=== PATIENT | male | born 1955 | race Caucasian/White ===

== ENCOUNTER 2018-08-14 21:42 | Emergency (ER) | payer MEDICAID ==
[~2018-08-14] VITALS: Ht 188 cm; Wt 83.0 kg
[2018-08-14] MEDS ORDERED: LORazepam 2 MG/ML, 1ML IVPush ONE (22:00)
[2018-08-14] MEDS ORDERED: LORazepam 2 MG/ML, 1ML ONE (22:05)
[2018-08-14 22:14] LABS: PH, VENOUS 7.327 pH (7.320-7.420)
[2018-08-14] MEDS: PLEASE ENTER HEIGHT AND WEIGHT MC SCH ×2 (22:16→23:08)
[2018-08-14 22:18] LABS: MICROSCOPIC NOT IND
[2018-08-14 22:19] LABS: BASOPHILS # (AUTO) 0.02 x10^3/uL (0-0.1); BASOPHILS % (AUTO) 0 % (0-1); EOSINOPHILS # (AUTO) 0.08 x10^3/uL (0-0.4); EOSINOPHILS % (AUTO) 1 % (1-7); LYMPHOCYTES # (AUTO) 2.55 x10^3/uL (1-3.4); LYMPHOCYTES % (AUTO) 39 % (22-44); MD NO; MEAN CORPUSCULAR HEMOGLOBIN 31.9 pg (27.5-34.5); MEAN CORPUSCULAR HGB CONC 34.4 g/dL (33.2-36.2); MEAN PLATELET VOLUME 9.3 fL (7.4-10.4); MONOCYTES # (AUTO) 0.44 x10^3/uL (0.2-0.8); MONOCYTES % (AUTO) 7 % (2-9); NEUTROPHILS % (AUTO) 52 % (42-75); PLATELET COUNT 136 x10^3/uL (130-400); RED CELL DISTRIBUTION WIDTH 13.9 % (9.4-14.8)
--- NOTE | 2018-08-14 22:19 | NUR ---
BIB [facility] WITH C/O HIGH BLOOD SUGAR, STATED PT CHECKED FSBS AT HOME X2 THAT READ HIGH, PT TOOK HOME SLIDING SCALE INSULIN 14 UNITS, PT A&OX4, DENIES NAUSEA. FSBS PER [facility] READ HIGH. MONITORS APPLIED, IV SITE STARTED, PT MEDICATED PER MAR, CALL LIGHT WITHIN REACH.
[2018-08-14] MEDS ORDERED: INSULIN (22:22)
[2018-08-14 22:28] LABS: ALANINE AMINOTRANSFERASE 58 U/L (12-78); ALBUMIN 3.5 g/dL (3.4-5.0); ANION GAP 18 mmol/L (5-15); CALCIUM 8.7 mg/dL (8.5-10.1); CHLORIDE 85 mmol/L (98-107); CREATININE 1.14 mg/dL (0.7-1.3)
[2018-08-14 22:29] LABS: CULTURE INDICATED? NO
[2018-08-14 22:30] LABS: ALKALINE PHOSPHATASE 84 U/L (45-117); BILIRUBIN,TOTAL 0.9 mg/dL (0.2-1.0); TROPONIN I < 0.015 ng/mL (0.000-0.045)
[2018-08-14] MEDS ORDERED: PLEASE ENTER ALLERGIES MC SCH (22:30)
[2018-08-14 22:49] LABS: ACETONE, SERUM Large (80mg/dL) mg/dL (Negative)
[2018-08-14] MEDS ORDERED: INSULIN REGULAR 100 UNITS/ML, 3ML VIAL IVPush ONE (23:00)
[2018-08-14] MEDS ORDERED: SODIUM CHLORIDE 0.9% 1,000ML IVBOLUS ONE ×2 (23:00)
[2018-08-14] MEDS ORDERED: INSULIN LISPRO 100 UNITS/ML, PEN ONE (23:01)
--- NOTE | 2018-08-14 23:10 | NUR ---
TASK RN: PT. RESTING ON GURNEY IN SUPINE POSITION WITH EYES CLOSED. SONOROUS, NON-LABORED RESPIRATIONS NOTED. EVEN, CHEST RISE/FALL. VS UPDATED. CALL LIGHT IN REACH. ALL SAFETY MEASUERS OBSERVED. PT. MEDICATED PER SEP.
[2018-08-14] MEDS ORDERED: INSULIN REGULAR 100 UNITS/ML, 3ML VIAL ONE (23:15)
--- NOTE | 2018-08-15 00:36 | NUR ---
PT RESTING WITH EYES CLOSED, NAD, EQUAL CHEST RISE/FALL OBSERVED, CALL LIGHT WITHIN REACH.
[2018-08-15] MEDS ORDERED: INSULIN REGULAR 100 UNITS/ML, 3ML VIAL ONE (00:45)
[2018-08-15] MEDS ORDERED: INSULIN REGULAR 100 UNITS/ML, 3ML VIAL IVPush ONE (01:00)
[2018-08-15 03:06] VITALS: BP 96/50
--- NOTE | 2018-08-15 03:17 | NUR ---
PEÑA RN: PT REFUSED TO LET THIS RN CHECK HIS BLOOD SUGAR. PT STATES, "I AM GETTING MY BOOTS ON AND LEAVING." PT DISCHRAGED. DR CARTER AWARE OF VS AT TIME OF DISCHARGE.
== END 2018-08-15 03:23 | disposition home or self-care (01) ==
LOC: ED 08-15 03:17
DX: E11.65 Type 2 diabetes mellitus with hyperglycemia (principal); R07.89 Other chest pain; Z72.9 Problem related to lifestyle, unspecified
CPT/HCPCS: 36415; 71045; 80053; 81003; 82010; 82803; 82962; 84484; 85025; 93005; 96361; 96374; 96375; 96376; 99284; J2060; J7030

== ENCOUNTER 2020-09-14 15:42 | Inpatient (IN) | payer MEDICAID ==
[~2020-09-14] VITALS: Ht 177.8 cm; Wt 60.1 kg
[~2020-09-14 15:42] MED LIST: INSULIN
--- NOTE | 2020-09-14 15:55 | NUR ---
ASSUMED CARE OF PATIENT. PATIENT CECIL SANTANA. EMS WAS CALLED, PT WAS PICKED UP DOWNTOWN. PT SMELLS OF ETOH. PT IS A&O X1. PT MOVING AROUND BED. PT WILL NOT ANSWER TRIAGE QUESTIONS. FSBS FOR EMS 493. PT HAS NOT BEEN TAKING HIS MEDS VS STABLE. NOT ABLE TO GET A TEMP AT THIS TIME. PARTS SALESMAN ON. WILL CONTINUE TO MONITOR.
--- NOTE | 2020-09-14 16:19 | NUR ---
pt seen by Dr Ennis. Pt resting with eyes closed. blanket given. sitter at bedside. call light in place. will continue to monitor.
[2020-09-14] MEDS ORDERED: SODIUM CHLORIDE 0.9% 1,000ML IVBOLUS ONE ×2 (16:30→18:00)
[2020-09-14] MEDS ORDERED: SODIUM CHLORIDE FLUSH 10ML SYR IVF ONE (16:30)
[2020-09-14] MEDS ORDERED: HALOPERIDOL 5 MG/ML IM ONE (16:45)
[2020-09-14] MEDS ORDERED: MIDAZOLAM 1 MG/ML, 2ML IVPush ONE (16:45)
[2020-09-14] MEDS ORDERED: MIDAZOLAM 1 MG/ML, 2ML ONE (16:46)
--- NOTE | 2020-09-14 16:52 | NUR ---
PT COMBATIVE. 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 PT YELLING AT STAFF. PT IS A&O1. PER DR BROWN, PROVIDER WANTS PT IN TWO POINT RESTRAINTS. DR BROWN WANTS VERSED GIVEN BUT HALDOL HELD AT THIS TIME. WILL CONTINUE TO MONITOR.
[2020-09-14 16:56] LABS: ALANINE AMINOTRANSFERASE 59 U/L (12-78); ALBUMIN 3.7 g/dL (3.4-5.0); ANION GAP 27 mmol/L (5-15); CALCIUM 9.7 mg/dL (8.5-10.1); CHLORIDE 101 mmol/L (98-107); CREATININE 1.78 mg/dL (0.7-1.3); MEAN CORPUSCULAR HEMOGLOBIN 29.9 pg (27.5-34.5); MEAN PLATELET VOLUME 9.8 fL (7.4-10.4); PLATELET COUNT 306 x10^3/uL (130-400); RED BLOOD COUNT 3.79 x10^6/uL (4.38-5.82); RED CELL DISTRIBUTION WIDTH 16.7 % (9.4-14.8); SALICYLATE LEVEL 2.6 mg/dL (2.8-20.0)
[2020-09-14 16:58] LABS: ALKALINE PHOSPHATASE 175 U/L (45-117); BILIRUBIN,TOTAL 0.6 mg/dL (0.2-1.0); TOTAL PROTEIN 8.2 g/dL (6.4-8.2)
[2020-09-14 17:06] LABS: MICROSCOPIC NOT IND
[2020-09-14 17:10] LABS: AMPHETAMINE SCREEN, URINE Positive (Negative); BARBITURATE SCREEN, URINE Negative (Negative); BENZODIAZEPINE SCREEN, URINE Negative (Negative); CANNABINOID SCREEN, URINE Negative (Negative); COCAINE SCREEN, URINE Negative (Negative); METHADONE SCREEN, URINE Negative (Negative); OPIATE SCREEN, URINE Negative (Negative)
--- NOTE | 2020-09-14 17:11 | NUR ---
PT RESTING IN GURNEY AFTER MEDICATION. SECURITY AT BEDSIDE TAKING RESTRAINTS OFF. DR BROWN AWARE. PT READY FOR CT. CT CALLED. VS STABLE. WILL CONTINUE TO MONITOR.
[2020-09-14 17:15] LABS: MD YES
[2020-09-14 17:17] LABS: BAND#(MANUAL) 1.17 x10^3/uL; BANDS%(MANUAL) 9 % (0-7); LYMPH#(MANUAL) 2.34 x10^3/uL (1-3.4); LYMPHS% (MANUAL) 18 % (22-44); METAMYELOCYTES# (MANUAL) 0.39 x10^3/uL (0-0); METAMYELOCYTES% (MANUAL) 3 % (0-1); MONOS#(MANUAL) 0.91 x10^3/uL (0.3-2.7); MONOS% (MANUAL) 7 % (2-9); SEG#(MANUAL) 8.19 x10^3/uL (1.8-6.8); SEGS% (MANUAL) 63 % (42-75)
[2020-09-14 17:18] LABS: <PLATELET ESTIMATE> ADEQUATE; <PLT MORPHOLOGY> NORMAL PLT MORPH; ANISOCYTOSIS 1+; POLYCHROMASIA 1+
--- NOTE | 2020-09-14 17:29 | NUR ---
pt back from CT
--- NOTE | 2020-09-14 17:34 | NUR ---
PT CALM AND RESTING IN ROOM WITH EYES CLOSED. REGULAR RESP. VS STABLE. CABLE SPOOLER ON. SINUS TACH NOTED. SITTER AT DOOR. CALL LIGHT IN PLACE. WILL CONTINUE TO MONITOR.
[2020-09-14] MEDS ORDERED: REGULAR INSULIN IV PRN (18:00)
[2020-09-14] MEDS ORDERED: SODIUM CHLORIDE 0.9% IV PRN (18:00)
[2020-09-14 18:15] LABS: ACETONE, SERUM Large (80mg/dL) (Negative)
[2020-09-14] MEDS ORDERED: LORazepam 2 MG/ML, 1ML ONE (18:21)
[2020-09-14] MEDS: LORazepam 2 MG/ML, 1ML IVPush PRN ×2 (18:25→18:47)
--- NOTE | 2020-09-14 18:27 | NUR ---
UNABLE TO GET A TEMP ON PATIENT. DR BROWN AWARE. PT MOVES AROUND BED. PT REFUSES TEMP. PT PULLED IV OUT. CATHETER INTACT. PT MOVED TO T3 PER PRECISION MACHINIST.
[2020-09-14] MEDS ORDERED: SODIUM CHLORIDE FLUSH 10ML SYR IVF PRN (18:30)
[2020-09-14] MEDS ORDERED: SODIUM CHLORIDE 0.9% 1,000 ML IV ONE (18:30)
--- NOTE | 2020-09-14 18:31 | NUR ---
PT AGGIATED, REDIRECTABLE TO STAY IN BED WITH ASSISTANCE FROM MORTGAGE LOAN CLOSER. PT MEDICATED PER ERP DR. BROWN WITH ATIVAN. PT LIFTED HIS PENIS AND STARTED PEEING ALL OVER BED WITHOUT WARNING TO STAFF. PT PROVIDED URINAL.
--- NOTE | 2020-09-14 18:41 | NUR ---
REPORT GIVEN TO CHRISTO MUSE. 93.[address] BROWN AWARE. YELLOW SLIP SENT FOR INSULIN.
--- NOTE | 2020-09-14 18:48 | NUR ---
DR BROWN AWARE OF VS. PT ON FARRAH ALBA PER PROVIDER.
--- NOTE | 2020-09-14 18:54 | NUR ---
SPOKE WITH DR BROWN. PROVIDER AWARE OF VS. SEPSIS PROTOCAL DISCUSSED WITH DR BROWN. NO NEW ORDERS AT THIS TIME. PROVIDER DOES NOT WANT ANY ABX AT THIS TIME.
--- NOTE | 2020-09-14 18:55 | NUR ---
BEDSIDE REPORT GIVEN TO CHRISTO PITTMAN
--- NOTE | 2020-09-14 19:14 | NUR ---
DR MATTHEWS IN ROOM. PROVIDER AWARE OF VS.
[2020-09-14] MEDS ORDERED: ONDANSETRON 2MG/ML, 2ML IV PRN (19:30)
[2020-09-14] MEDS ORDERED: LORazepam 2 MG/ML, 1ML IVPush PRN (19:30)
[2020-09-14] MEDS ORDERED: ACETAMINOPHEN 325 MG TABLET PO PRN (19:30)
[2020-09-14] MEDS: D5%-0.45NACL+KCL 20MEQ 1,000 ML IV SCH (19:30)
[2020-09-14] MEDS ORDERED: PHARMACY MAY ADJ FOR RENAL FX MC PRN (19:30)
[2020-09-14] MEDS ORDERED: LACTULOSE 10 GM/15 ML UDC PO PRN (19:30)
[2020-09-14] MEDS ORDERED: REGULAR INSULIN 100 UNITS in SODIUM CHLORIDE 0.9% 99 ML IV PRN (19:30)
[2020-09-14] MEDS: REGULAR INSULIN 100 UNITS in SODIUM CHLORIDE 0.9% 99 ML IV PRN ×2 (19:30→21:01)
[2020-09-14] MEDS ORDERED: THIAMINE 200 MG in SODIUM CHLORIDE 0.9% 50 ML IV ONE (19:30)
[2020-09-14] MEDS ORDERED: hydrALAzine 20 MG/ML, 1ML IVPush PRN (19:30)
[2020-09-14 19:37] LABS: ESTIMATED AVERAGE GLUCOSE 355 mg/dL (0-126)
[2020-09-14 19:44] LABS: INTERNATIONAL NORMALIZED RATIO 0.98 (0.93-1.1); PROTHROMBIN TIME 10.5 Seconds (9.6-11.5)
--- NOTE | 2020-09-14 19:47 | NUR ---
PER KWAME AQUINO TO PUT IN ROMERO FOR STRICT I+O
--- NOTE | 2020-09-14 19:48 | NUR ---
WARMING MEASURES REMAIN IN PLACED.
[2020-09-14 19:51] LABS: ANION GAP 24 mmol/L (5-15); CALCIUM 9.2 mg/dL (8.5-10.1); CHLORIDE 107 mmol/L (98-107); CREATININE 1.46 mg/dL (0.7-1.3)
--- NOTE | 2020-09-14 19:56 | NUR ---
[employer] COUNSELORS: CT CALLED
[2020-09-14 20:01] LABS: CREATINE KINASE, TOTAL 125 U/L (39-308)
[2020-09-14] MEDS ORDERED: PIPERACILLIN/TAZO/PMX 3.375GM 50 ML ONE (20:04)
[2020-09-14] MEDS: PIPERACILLIN/TAZO/PMX 3.375GM 50 ML IV SCH (20:07)
--- NOTE | 2020-09-14 20:16 | NUR ---
report to rosmery ornelas
[2020-09-14] MEDS: SODIUM CHLORIDE 0.9% 1,000 ML IV SCH (20:59)
[2020-09-14 23:40] LABS: ANION GAP 19 mmol/L (5-15); CALCIUM 8.9 mg/dL (8.5-10.1); CHLORIDE 117 mmol/L (98-107); CREATININE 1.23 mg/dL (0.7-1.3)
[2020-09-15] MEDS: SODIUM CHLORIDE 0.9% 1,000 ML IV SCH ×2 (00:24→05:30)
[2020-09-15] MEDS: D5%-0.45NACL+KCL 20MEQ 1,000 ML IV SCH (01:03)
[2020-09-15] MEDS: PIPERACILLIN/TAZO/PMX 3.375GM 50 ML IV SCH (03:17)
[2020-09-15 03:42] LABS: ANION GAP 6 mmol/L (5-15); CALCIUM 8.8 mg/dL (8.5-10.1); CHLORIDE 122 mmol/L (98-107); CREATININE 1.19 mg/dL (0.7-1.3)
[2020-09-15 07:19] LABS: ANION GAP 7 mmol/L (5-15); CALCIUM 8.7 mg/dL (8.5-10.1); CHLORIDE 120 mmol/L (98-107); CREATININE 1.21 mg/dL (0.7-1.3)
[2020-09-15] MEDS ORDERED: THIAMINE 100MG TABLET PO/NG SCH (09:00)
[2020-09-15] MEDS: AMPICILLIN/SULBACTAM 3 GM in SODIUM CHLORIDE 0.9% 100 ML IV SCH ×3 (09:18→20:39)
[2020-09-15] MEDS: MAGNESIUM SULFATE 1 GM, THIAMINE 200 MG, FOLIC ACID 1 MG in SODIUM CHLORIDE 0.9% 1,000 ML IV SCH (09:18)
[2020-09-15] MEDS: INSULIN GLARGINE 100 UNITS/ML, PEN SQ-INSULIN SCH ×2 (09:26→20:40)
[2020-09-15] MEDS: INSULIN LISPRO 100 UNITS/ML, PEN SQ-INSULIN SCH ×4 (09:26→20:40)
[2020-09-15 19:15] VITALS: BP 152/89
[2020-09-15] MEDS ORDERED: POTASSIUM CHLORIDE 20 MEQ in DEXTROSE 5% 1,000 ML IV SCH (19:30)
[2020-09-16 00:46] VITALS: BP 139/72
[2020-09-16] MEDS: AMPICILLIN/SULBACTAM 3 GM in SODIUM CHLORIDE 0.9% 100 ML IV SCH ×4 (02:03→19:46)
[2020-09-16] MEDS: INSULIN LISPRO 100 UNITS/ML, PEN SQ-INSULIN SCH ×4 (08:03→19:52)
[2020-09-16] MEDS: INSULIN GLARGINE 100 UNITS/ML, PEN SQ-INSULIN SCH ×2 (08:04→19:51)
[2020-09-16 08:29] LABS: BASOPHILS % (AUTO) 0 % (0-1); EOSINOPHILS % (AUTO) 0 % (1-7); LYMPHOCYTES % (AUTO) 14 % (22-44); MEAN CORPUSCULAR HEMOGLOBIN 30.5 pg (27.5-34.5); MEAN CORPUSCULAR HGB CONC 33.5 g/dL (33.2-36.2); MONOCYTES % (AUTO) 3 % (2-9); NEUTROPHILS % (AUTO) 83 % (42-75); PLATELET COUNT 201 x10^3/uL (130-400); RED BLOOD COUNT 3.51 x10^6/uL (4.38-5.82); RED CELL DISTRIBUTION WIDTH 16.9 % (9.4-14.8)
[2020-09-16 08:30] LABS: ALANINE AMINOTRANSFERASE 41 U/L (12-78); ALBUMIN 2.6 g/dL (3.4-5.0); ANION GAP 13 mmol/L (5-15); CHLORIDE 108 mmol/L (98-107); CREATININE 0.77 mg/dL (0.7-1.3)
[2020-09-16 08:32] LABS: ALKALINE PHOSPHATASE 127 U/L (45-117); BILIRUBIN,TOTAL 0.7 mg/dL (0.2-1.0); TOTAL PROTEIN 6.1 g/dL (6.4-8.2)
[2020-09-16 08:54] VITALS: BP 106/64
[2020-09-16 08:59] LABS: MD MORPH REVIEW ONLY
[2020-09-16 09:00] LABS: <PLATELET ESTIMATE> ADEQUATE; <PLT MORPHOLOGY> NORMAL PLT MORPH; ANISOCYTOSIS 1+; POLYCHROMASIA 1+; TOXIC GRAN 1+
[2020-09-16] MEDS: MAGNESIUM SULFATE 1 GM, THIAMINE 200 MG, FOLIC ACID 1 MG in SODIUM CHLORIDE 0.9% 1,000 ML IV SCH (10:04)
[2020-09-16 12:12] VITALS: BP 105/66
[2020-09-16 19:11] VITALS: BP 135/82
[2020-09-17 00:09] VITALS: BP 125/66
[2020-09-17] MEDS: AMPICILLIN/SULBACTAM 3 GM in SODIUM CHLORIDE 0.9% 100 ML IV SCH ×4 (01:48→20:37)
[2020-09-17 06:48] VITALS: BP 107/65
[2020-09-17] MEDS: INSULIN LISPRO 100 UNITS/ML, PEN SQ-INSULIN SCH ×6 (07:00→20:38)
[2020-09-17 08:40] LABS: BASOPHILS % (AUTO) 1 % (0-1); EOSINOPHILS % (AUTO) 1 % (1-7); LYMPHOCYTES % (AUTO) 22 % (22-44); MEAN CORPUSCULAR HEMOGLOBIN 30.7 pg (27.5-34.5); MEAN CORPUSCULAR HGB CONC 33.9 g/dL (33.2-36.2); MEAN PLATELET VOLUME 7.9 fL (7.4-10.4); MONOCYTES % (AUTO) 4 % (2-9); NEUTROPHILS % (AUTO) 71 % (42-75); PLATELET COUNT 166 x10^3/uL (130-400); RED BLOOD COUNT 3.54 x10^6/uL (4.38-5.82); RED CELL DISTRIBUTION WIDTH 16.8 % (9.4-14.8)
[2020-09-17 08:41] LABS: MD NO
[2020-09-17 08:42] LABS: ANION GAP 8 mmol/L (5-15); CALCIUM 7.6 mg/dL (8.5-10.1); CHLORIDE 113 mmol/L (98-107); CREATININE 0.71 mg/dL (0.7-1.3)
[2020-09-17] MEDS: INSULIN GLARGINE 100 UNITS/ML, PEN SQ-INSULIN SCH (09:54)
[2020-09-17] MEDS: MAGNESIUM SULFATE 1 GM, THIAMINE 200 MG, FOLIC ACID 1 MG in SODIUM CHLORIDE 0.9% 1,000 ML IV SCH (11:06)
[2020-09-17 12:58] VITALS: BP 115/74
[2020-09-17] MEDS ORDERED: INSULIN GLARGINE 100 UNITS/ML, PEN SQ-INSULIN SCH (21:00)
[2020-09-18 01:37] VITALS: BP 116/75
[2020-09-18] MEDS: AMPICILLIN/SULBACTAM 3 GM in SODIUM CHLORIDE 0.9% 100 ML IV SCH ×2 (02:43→08:49)
[2020-09-18 07:12] VITALS: BP 122/81
[2020-09-18] MEDS: INSULIN LISPRO 100 UNITS/ML, PEN SQ-INSULIN SCH ×2 (08:50→11:46)
[2020-09-18] MEDS ORDERED: INSULIN GLARGINE 100 UNITS/ML, PEN SQ-INSULIN SCH (09:00)
[2020-09-18] MEDS: MAGNESIUM SULFATE 1 GM, THIAMINE 200 MG, FOLIC ACID 1 MG in SODIUM CHLORIDE 0.9% 1,000 ML IV SCH (10:07)
[2020-09-18] MEDS ORDERED: INSU100I13 SQ-INSULIN (10:47)
[2020-09-18] MEDS ORDERED: INSU100I11 SQ-INSULIN (10:47)
[2020-09-18] MEDS ORDERED: AMOX1TAB64 PO (10:47)
[2020-09-18] MEDS ORDERED: INSULIN LISPRO 100 UNITS/ML, PEN SQ-INSULIN SCH (11:00)
[2020-09-18 12:04] VITALS: BP 129/72
== END 2020-09-18 14:38 | disposition home or self-care (01) | DRG 871 ==
LOC: ED 18:15 → EDIP 18:23 → ED 20:37 → CCU 20:45 → 3N 09-15 10:00
PROVIDERS: ADMIT Family Medicine; ATTEND Hospitalist
PROC: 0T9B70Z Drainage of Bladder with Drainage Device, Via Natural or Artificial Opening (ICD-10-PCS; principal; 2020-09-14)
DX: A41.9 Sepsis, unspecified organism (principal); E10.10 Type 1 diabetes mellitus with ketoacidosis without coma; G92 Toxic encephalopathy; N17.0 Acute kidney failure with tubular necrosis; L03.115 Cellulitis of right lower limb; B19.20 Unspecified viral hepatitis C without hepatic coma; D64.9 Anemia, unspecified; F10.129 Alcohol abuse with intoxication, unspecified; F15.159 Other stimulant abuse with stimulant-induced psychotic disorder, unspecified; F41.9 Anxiety disorder, unspecified; J32.9 Chronic sinusitis, unspecified; Z79.4 Long term (current) use of insulin
CPT/HCPCS: 36415; 70450; 71045; 80048; 80053; 80074; 80299; 80307; 80320; 80329; 81003; 82010; 82140; 82550; 82800; 82947; 82962; 83036; 83605; 83690; 83735; 84100; 84443; 85025; 85610; 85651; 86140; 86592; 87040; 87081; 87521; 87806; 93005; 96361; 96374; 96375; 99291; G0378; J0295; J1815; J2250; J2543; J3411; J3475; J3480; J7070; 92523-GN; G0475; G0480; J2060; J7030